=== PATIENT | female | born 1945 | race Caucasian/White ===

== ENCOUNTER 2023-06-27 11:39 | Day surgery (SDC) | payer MEDICARE, MEDICAID ==
[2023-06-23 14:37] LABS: BASOPHILS % (AUTO) 1.2 % (0-1); EOSINOPHILS # (AUTO) 0.1 X10'3 (0-0.9); EOSINOPHILS % (AUTO) 2.5 % (0-6); HEMATOCRIT 38.7 % (35.0-45.0); HEMOGLOBIN 12.8 g/dl (12.0-16.0); LYMPHOCYTES # (AUTO) 0.7 X10'3 (1.1-4.8); MEAN CORPUSCULAR HGB CONC 33.1 g/dL (33.0-36.5); MEAN CORPUSCULAR VOLUME 99.6 FL (78-98); MEAN PLATELET VOLUME 9.4 FL (7.4-10.4); MONOCYTES # (AUTO) 0.6 X10'3 (0-0.9); MONOCYTES % (AUTO) 16.7 % (2-12); NEUTROPHILS # (AUTO) 2.2 X10'3 (1.8-7.7); NEUTROPHILS % (AUTO) 60.6 % (42-75); PLATELET COUNT 124 X10'3 (140-440); RED BLOOD COUNT 3.88 X10'6 (4.20-5.60); RED CELL DISTRIBUTION WIDTH 16.2 % (11.5-14.5); WHITE BLOOD COUNT 3.7 X10'3 (4.5-11.0)
[2023-06-23 14:42] LABS: ALBUMIN 3.2 G/DL (3.4-5.0); ANION GAP 5 (8-16); BLOOD UREA NITROGEN 10 MG/DL (7-18); BUN/CREATININE RATIO 15.9 (10.0-20.0); CALCIUM 9.1 MG/DL (8.5-10.1); CHLORIDE 104 MMOL/L (99-107); CREATININE 0.63 MG/DL (0.40-0.90); GLUCOSE 86 MG/DL (70-104); POTASSIUM 4.2 MMOL/L (3.5-5.1); SODIUM 141 MMOL/L (135-145); TOTAL CARBON DIOXIDE 32.2 MMOL/L (24-32); eGFR > 90 ML/MIN
[2023-06-23 14:52] LABS: APTT 32 SECONDS (22-32); INR 1.2 INR; PROTHROMBIN TIME 12.3 SECONDS (9.0-12.0)
[2023-06-23 16:18] LABS: TOTAL CELLS COUNTED 100
[2023-06-23 16:19] LABS: ANISOCYTOSIS 1+; BURR CELLS FEW; ELLIPTOCYTES FEW; HYPOCHROMASIA 1+; PLATELET ESTIMATE DECREASED; SCHISTOCYTES FEW
[2023-06-23 16:20] LABS: SMUDGE CELLS FEW
[~2023-06-27] VITALS: Ht 165.1 cm; Wt 124.4 kg
[2023-06-27] VITALS (9 sets, daily range): BP systolic 106–140; BP diastolic 63–84; PULSE 85–105; RESP 14–17; O2SAT 96–98
[2023-06-27] MEDS ORDERED: normal saline 1000ml 1,000 ML IV SCH (11:55)
[2023-06-27] MEDS ORDERED: ATOR-2 PO (11:59)
[2023-06-27] MEDS ORDERED: APIX5TAB3 PO (11:59)
[2023-06-27] MEDS ORDERED: SOTA80TA PO (11:59)
[2023-06-27] MEDS ORDERED: GLUC-162 PO (11:59)
[2023-06-27] MEDS ORDERED: FURO40TA4 PO (11:59)
[2023-06-27] MEDS ORDERED: LEVO50TA8 PO (11:59)
[2023-06-27] MEDS ORDERED: DOXE3TAB4 PO (11:59)
[2023-06-27] MEDS ORDERED: ASCO500C17 PO (12:00)
[2023-06-27] MEDS ORDERED: OSC500T PO (12:01)
[2023-06-27] MEDS: fentaNYL/PF 50MCG/1 ML 2ML syringe IV ONE (15:19)
[2023-06-27] MEDS: MIDAZolam 1mg/ml 10ml vial IV ONE (15:19)
== END 2023-06-27 16:40 | disposition home or self-care (01) ==
LOC: SSTAY O 11:39
PROVIDERS: ATTEND Student in an Organized Health Care Education/Training Program
DX: I48.91 Unspecified atrial fibrillation (principal); E78.00 Pure hypercholesterolemia, unspecified; I27.20 Pulmonary hypertension, unspecified; I42.9 Cardiomyopathy, unspecified; M19.90 Unspecified osteoarthritis, unspecified site; Z79.01 Long term (current) use of anticoagulants; Z79.890 Hormone replacement therapy; Z79.899 Other long term (current) drug therapy
CPT/HCPCS: 36415; 80048; 85025; 85610; 85730; 92960; 93005; J2250; J3010; J7030; 85007; A4620